=== PATIENT | male | born 1990 | race African-American/Black ===

== ENCOUNTER 2022-02-18 11:34 | Emergency (ER) | payer BC, OTHER ==
[~2022-02-18] VITALS: Ht 198.1 cm; Wt 101.0 kg
[2022-02-18 11:59] VITALS: BP 139/81
== END 2022-02-18 14:00 | disposition left against medical advice (07) ==
LOC: ER 11:34
DX: Z53.21 Procedure and treatment not carried out due to patient leaving prior to being seen by health care provider (principal)

== ENCOUNTER 2022-02-18 18:45 | Emergency (ER) | payer BC ==
[~2022-02-18] VITALS: Ht 195.6 cm; Wt 101.0 kg
[2022-02-18] MEDS ORDERED: IBUPROFEN 600MG TABLET PO STA (21:06)
[2022-02-18 22:52] VITALS: BP 129/75
== END 2022-02-18 22:53 | disposition home or self-care (01) ==
LOC: ER 18:45
DX: S09.8XXA Other specified injuries of head, initial encounter (principal); V49.49XA Driver injured in collision with other motor vehicles in traffic accident, initial encounter; Y93.89 Activity, other specified; Y92.414 Local residential or business street as the place of occurrence of the external cause
CPT/HCPCS: 99284